=== PATIENT | male | born 1965 | race Caucasian/White ===

== ENCOUNTER 2018-01-02 07:55 | Emergency (ER) | payer OTHER ==
[~2018-01-02] VITALS: Ht 182.9 cm; Wt 111.1 kg
[~2018-01-02 07:55] MED LIST: ATORVASTATIN CA80 MG PO; BRILINTA90 MG PO; ECOTRIN81 MG PO; LOPRESSOR 25MG25 MG PO; PAROXETINE HYDR20 MG PO; PAROXETINE40 MG PO; PAXIL40 MG PO; PERIOGARD 473473 ML; SUBOXONE 8 MG-21 FIL SL
[2018-01-02 07:58] VITALS: BP 146/75
--- NOTE | 2018-01-02 08:59 | ED MVC/FALL/TRAUMA COMPLAINT ---
History of Present Illness General Chief Complaint: General Adult Stated Complaint: FALL LAST PM. R KNEE/ELBOW/HIP & L SHOULDER PAIN Source: patient, old records Exam Limitations: no limitations Vital Signs & Intake/Output Vital Signs & Intake/Output Vital Signs Date Time Temp Pulse Resp B/P B/P Pulse O2 O2 Flow FiO2 Mean Ox Delivery Rate 01/02 0758 96.5 72 16 146/75 96 Room Air Allergies Coded Allergies: NO KNOWN ALLERGIES (06/28/14) Reconcile Medications Aspirin (Ecotrin) 81 MG ECT 1 TAB PO DAILY HEART/BLOOD (Reported) Atorvastatin Calcium (Lipitor) 80 MG TAB 1 TAB PO DAILY CHOLESTEROL (Reported ) BUPRENORPHINE HCL/NALOXONE HCL (Suboxone 8 MG-2 MG Sl Film) 8 MG-2 MG FILM 1 FILM SL TID MENTAL HEALTH/PAIN (Reported) Chlorhexidine Gluconate (Periogard 473 Ml) (Unknown Strength) LIQ (Unknown Dose) UNKNOWN (Reported) Metoprolol Tartrate (Lopressor) 25 MG TAB 1 TAB PO BID HEART (Reported) PAROXETINE HCL (Paxil) 40 MG TAB 1 TAB PO DAILY MENTAL HEALTH (Reported) PAROXETINE HCL (Paroxetine Hydrochloride) 20 MG TAB 1 TAB PO DAILY MENTAL HEALTH (Reported) Ticagrelor (Brilinta) 90 MG TAB 1 TAB PO BID HEART (Reported) Triage Note: 52 Y/O MALE C/O PAIN TO R KNEE, R SHOULDER, R HIP AND L CHEST WALL S/P TRIP AND FALL YESTERDAY. STATES HE "SLIPPED OFF OF WET CARPET AND WENT DOWN ON ONE KNEE .. I MUST HAVE PULLED EVERYTHING". PT USING CANE INTO TRIAGE, STATES HE ALWAYS USES CANE DECLINES OFFER OF MEDS - "I TAKE SUBOXONE, I DONT WANT ANYTHING FOR PAIN". PT DENIES STRIKING HEAD WITH FALL. STEADY GAIT NOTED, WITH CANE. Triage Nurses Notes Reviewed? yes Onset: Evening Duration: hour(s):, constant, continues in ED Timing: recent history Severity: moderate Injuries/Fall Location: upper extremity, pelvis, lower extremity Method of Injury: fall Loss of Consciousness: no loss of consciousness Modifying Factors: Improves With: rest. Worsens With: movement, palpation. Associated Symptoms: trouble walking HPI: Evening prior to admission patient reports slipping on wet carpet in a local grocery store falling onto his right knee while holding his cane in his left hand. He complains of left clavicle right knee and right hip pain described as moderate sharp worse with movement ambulation. He denies head strike fever chills nausea vomiting diarrhea abdominal pain chest pain shortness breath headache dysuria rash bleeding change in bowel bladder habit. Past History Travel History Traveled to [place] past 21 day No Medical History Any Pertinent Medical History? see below for history Neurological: NONE EENT: NONE Cardiovascular: CAD, hypertension, myocardial infarction Respiratory: NONE Gastrointestinal: NONE Hepatic: NONE Renal: NONE Musculoskeletal: NONE Psychiatric: NONE Endocrine: NONE Blood Disorders: NONE Cancer(s): NONE NURSE EMERGENCY ROOM/Reproductive: NONE Tetanus Vaccine: 10/13/14 Surgical History Surgical History: dental extraction-jul 2015 Psychosocial History What is your primary language Lithuanian Tobacco Use: Quit >30 days ago Family History Hx Contributory? No Review of Systems Review of Systems Constitutional: Reports: no symptoms. Eyes: Reports: no symptoms. Ears, Nose, Throat, Mouth: Reports: no symptoms. Respiratory: Reports: no symptoms. Cardiovascular: Reports: no symptoms. Gastrointestinal/Abdominal: Reports: no symptoms. Genitourinary: Reports: no symptoms. Musculoskeletal: Reports: see HPI, joint pain. Skin: Reports: no symptoms. Neurological/Psychological: Reports: no symptoms. All Other Systems: Reviewed and Negative Physical Exam Physical Exam General Appearance: well developed/nourished, alert, awake, anxious, mild distress Head: atraumatic, normal appearance Eyes: Bilateral: normal appearance, PERRL, EOMI, normal inspection. Ears, Nose, Throat, Mouth: hearing grossly normal, moist mucous membrane Neck: normal inspection, supple, full range of motion, normal alignment Respiratory: normal breath sounds, chest non-tender, no respiratory distress, quiet respiration, lungs clear Cardiovascular: regular rate/rhythm, normal peripheral pulses, norml femoral pulses equa Peripheral Pulses: 4+ carotid (R), 4+ carotid (L) Gastrointestinal: normal bowel sounds, soft, non-tender, no organomegaly Back: normal inspection, normal range of motion, no vertebral tenderness Extremities: bony-point tenderness, limited range of motion, pain with movement, tenderness (R knee/hip, L clavicle) Neurologic/Psych: no motor/sensory deficits, awake, alert, oriented x 3, normal mood/affect, 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 No CVA/TIA Diagnosis No Sepsis Present: No Sepsis Focused Exam Completed? No Progress Differential Diagnosis: ext injury, pelvis injury Plan of Care: Orders Procedure Date/time Status XRY-KNEE COMPLETE RIGHT 01/03 816 Active XRY-HIP 2-3 VIEWS, RIGHT 01/03 816 Active XRY-CLAVICLE, LEFT 01/03 816 Active Diagnostic Imaging: Viewed by Me: Radiology Read. Discussed w/RAD: Radiology Read. Radiology Impression: No acute fracture or dislocation seen. Apparent widening of the left acromioclavicular joint, question secondary to resection of the left distal clavicle., Normal right knee., Normal right hip. Departure Departure Time of Disposition: 925 Disposition: HOME OR SELF CARE Condition: Stable Clinical Impression Primary Impression: AC separation Secondary Impressions: Hip sprain, Knee contusion Referrals: Hernan HAWKINS,Hermes Simon (PCP/Family) Departure Forms: Customer Survey General Discharge Information Prescriptions: Current Visit Scripts Ibuprofen 1 TAB PO TID PRN pain #30 TAB with food Baclofen 1 TAB PO TIDPRN PRN muscle spasm/strain #30 TAB
--- NOTE | 2018-01-02 09:14 | RADIOLOGY REPORT ---
EXAMINATION: XR HIP, RIGHT CLINICAL INFORMATION: Pain. Fall. COMPARISON: None TECHNIQUE: Two views of the right hip. FINDINGS: Bone alignment is normal. No fracture or dislocation is seen. The joint space is normal. Soft tissues are normal. IMPRESSION: Normal right hip.
--- NOTE | 2018-01-02 09:15 | RADIOLOGY REPORT ---
EXAMINATION: XR KNEE, RIGHT CLINICAL INFORMATION: Fall COMPARISON: None TECHNIQUE: Four views of the right knee. FINDINGS: Bone alignment is normal. No fracture or dislocation is seen. Joint spaces are normal. There is no joint effusion. IMPRESSION: Normal right knee.
--- NOTE | 2018-01-02 09:16 | RADIOLOGY REPORT ---
EXAMINATION: XR CLAVICLE, LEFT CLINICAL INFORMATION: Fall COMPARISON: None TECHNIQUE: 2 of the left clavicle. FINDINGS: No acute fracture or dislocation is seen. There is apparent widening of the acromioclavicular joint. This may be related to previous resection of the left distal clavicle. Clinical correlation is recommended. The glenohumeral joint appears unremarkable. Soft tissues are unremarkable. IMPRESSION: No acute fracture or dislocation seen. Apparent widening of the left acromioclavicular joint, question secondary to resection of the left distal clavicle. Clinical correlation recommended.
[2018-01-02] MEDS ORDERED: IBUPROFEN600 M1 PO (09:27)
[2018-01-02] MEDS ORDERED: BACLOFEN10 M1 PO (09:27)
== END 2018-01-02 09:39 ==
LOC: ERH 07:55
DX: S43.102A Unspecified dislocation of left acromioclavicular joint, initial encounter (principal); S73.101A Unspecified sprain of right hip, initial encounter; S80.01XA Contusion of right knee, initial encounter; W01.0XXA Fall on same level from slipping, tripping and stumbling without subsequent striking against object, initial encounter; Y92.512 Supermarket, store or market as the place of occurrence of the external cause; Y93.9 Activity, unspecified
CPT/HCPCS: 73000-LT; 73502-RT; 73562-RT